=== PATIENT | male | born 1985 ===

== ENCOUNTER 2019-01-11 16:06 | Emergency (ER) | payer OTHER ==
[2019-01-11 17:06] VITALS: BP 104/46
== END 2019-01-11 17:10 | disposition expired | DRG 923 ==
LOC: ED 16:12
PROC: 5A12012 Performance of Cardiac Output, Single, Manual (ICD-10-PCS; principal; 2019-01-11)
PROC: 0BH17EZ Insertion of Endotracheal Airway into Trachea, Via Natural or Artificial Opening (ICD-10-PCS; 2019-01-11)
DX: T67.0XXA Heatstroke and sunstroke, initial encounter (principal); I46.8 Cardiac arrest due to other underlying condition; X30.XXXA Exposure to excessive natural heat, initial encounter; Y93.89 Activity, other specified; Y92.73 Farm field as the place of occurrence of the external cause; Y99.0 Civilian activity done for income or pay